=== PATIENT | female | born 1960 | race Caucasian/White ===

== ENCOUNTER 2024-08-02 19:58 | Emergency (ER) | payer MEDICARE, BC, SELFPAY ==
[2024-08-02 20:00] VITALS: BP 127/73
--- NOTE | 2024-08-02 20:54 | EDRN ---
Patient evaluated by Jesika MOSER, patient needed no further nursing care. Patient discharged by Jesika MOSER.
--- NOTE | 2024-08-02 21:51 | ED.SKININJ ---
HPI-Injury
General
Chief Complaint: Head Injury
Source: patient
Exam Limitations: none
Time Seen by Provider: 08/02/24 20:39
Nursing documentation reviewed up to this point in time: agreed with
History of Present Illness-Injury
Is this injury a work related problem?: No
Is pt an associate of [facility]/[place]?: No
Initial Injury comments:
Hit back of head on window sill. No LOC. Sustained a smass wound to her posterior scalp. INcident occurred last PM. She was unable to visualize, unsure of dimensions and course of treatment.
Past History
Past History
ED Past Medical History: None
ED Past Surgical History: None
Review of Systems
Review of Systems
Allergies reviewed?: Yes
All Other Systems: ROS reviewed and negative except as documented in HPI and ROS
Constitutional: Reports no symptoms
Skin: Reports no symptoms (Small superficial abraded area posterior scalp)
Neurological: Reports no symptoms
Psychiatric: Reports no symptoms
Phy Exam
General Physical Exam
General Presentation: well appearing and no apparent distress
General Skin: warm and dry
General Habitus: normal
Musculoskeletal Exam
Musculoskeletal Exam: full ROM
Skin Exam
Skin Exam: other (small superficial abraded area on posterior scalp. NO intervention required. )
Psychiatric Exam
Psychiatric Exam: normal mood/affect
Course
Vital Signs
Initial and Last Documented VS:
Initial Vital Signs
Temp Pulse Resp BP Pulse Ox
98.4 F 59 18 127/73 99
08/02/24 20:00 08/02/24 20:00 08/02/24 20:00 08/02/24 20:00 08/02/24 20:00
Last Documented Vital Signs
Temp Pulse Resp BP Pulse Ox
98.4 F 59 18 127/73 99
08/02/24 20:00 08/02/24 20:00 08/02/24 20:00 08/02/24 20:00 08/02/24 20:00
*Critical Care Note
Total Time (30-74mins, 75-104mins- exclusive of procedures): Not Applicable
Update Note
Update Note:
Small superficial abraded area posterior scalp. No internvention required. WIll follow up with PCP as needed
ED Attending Note
-
Portions of this chart may have been created with voice recognition software.� Occasional wrong word or��sound alike� substitutions may have occurred due to the inherent limitations of voice recognition software.
Discharge Plan
Departure
Patient Disposition: Home (Routine Discharge)
Date of Disposition: 08/02/24
Time of Disposition: 20:39
Patient with high blood pressure during this ER visit?: No
Condition: Good
Covid-19: Not Applicable
Discharge Problem:
Abrasion of scalp
Instructions: Head Injury in Adults (DC), Wound care - ED discharge instructions
Activity Restrictions/Additional Instructions:
Follow up with your family doctor
Interventions
Interventions:
*Risk Screen - Suicide Last Done: 08/02/24 20:00
*General Assessment Last Done: 08/02/24 20:00
*Neglect/Abuse Screening Last Done: 08/02/24 20:00
*ED COVID-19 Vaccine History Last Done: 08/02/24 20:00
*Nursing Disposition Last Done: 08/02/24 20:55
Discharge Date and Time
Discharge Date/Time: 08/02/24 20:58
Print Language: MACEDONIAN
== END 2024-08-02 20:58 | disposition home or self-care (01) ==
LOC: EMR 19:58
PROVIDERS: EMERGENCY PHYSICIAN Emergency Medicine; FAMILY PHYSICIAN Family Medicine
DX: S00.01XA Abrasion of scalp, initial encounter (principal); W07.XXXA Fall from chair, initial encounter; W22.09XA Striking against other stationary object, initial encounter
CPT/HCPCS: 99282